=== PATIENT | male | born 1960 | race Caucasian/White ===

== ENCOUNTER 2022-11-02 08:30 | Emergency (ER) | payer OTHER ==
[~2022-11-02] VITALS: Ht 182.9 cm; Wt 80.9 kg
[2022-11-02 08:43] VITALS: TEMP 98.1
[2022-11-02 09:35] LABS: HEMATOCRIT 49.1 % (42.0-52.0); HEMOGLOBIN 16.7 g/dl (13.5-18.0); MEAN CELL VOLUME 93 fl (80.0-100.0); MEAN CORPUSCULAR HEMOGLOBIN 32 pg (27-31); MEAN CORPUSCULAR HGB CONC 34 g/dl (33.0-37.0); PLATELET COUNT 302 K/mm3 (130-400); RED BLOOD COUNT 5.28 M/mm3 (4.20-5.60)
[2022-11-02 09:52] LABS: ALBUMIN 3.5 gm/dL (3.4-4.8); BILIRUBIN,TOTAL 0.7 mg/dL (0.2-1.2); C-REACTIVE PROTEIN 11.39 mg/dL (0.00-0.50); CALCIUM 9.3 mg/dL (8.4-10.2); CREATININE, serum 1.03 mg/dL (0.72-1.25); POTASSIUM 3.7 mmol/L (3.5-4.5)
[2022-11-02 09:56] LABS: LYMPHOCYTE 8 % (20.0-51.0); NEUTROPHILS 83 % (42.0-75.2); PLATELET ESTIMATE NORMAL (NORMAL)
[2022-11-02] MEDS ORDERED: PREDNISONE20 MG PO (11:18)
[2022-11-02] MEDS ORDERED: DOXYCYCLINE 10100 MG PO (11:18)
[2022-11-02 11:46] VITALS: BP 144/90; PULSE 88
== END 2022-11-02 11:47 | disposition home or self-care (01) ==
LOC: COL.ER 08:30
PROVIDERS: Emergency Medicine
DX: J44.1 Chronic obstructive pulmonary disease with (acute) exacerbation (principal); D72.829 Elevated white blood cell count, unspecified; R79.82 Elevated C-reactive protein (CRP); F17.210 Nicotine dependence, cigarettes, uncomplicated; Z79.51 Long term (current) use of inhaled steroids
CPT/HCPCS: J7512